=== PATIENT | male | born 1960 | race Caucasian/White ===

== ENCOUNTER → 2024-10-14 08:37 | Outpatient (BNVA) | payer OTHER, SELFPAY | PROVIDERS: Visit Provider Nurse Practitioner Family | DX: D48.5 Neoplasm of uncertain behavior of skin (principal); L73.8 Other specified follicular disorders; L82.1 Other seborrheic keratosis; L57.8 Other skin changes due to chronic exposure to nonionizing radiation; X32.XXXA Exposure to sunlight, initial encounter; L57.0 Actinic keratosis; L81.4 Other melanin hyperpigmentation; L82.0 Inflamed seborrheic keratosis; L53.8 Other specified erythematous conditions; R20.8 Other disturbances of skin sensation | CPT/HCPCS: 11102; 17000; 17110; 99203 ==

== ENCOUNTER → 2024-10-29 10:44 | Outpatient (BNVA) | payer OTHER, SELFPAY | PROVIDERS: Visit Provider Nurse Practitioner | DX: M19.011 Primary osteoarthritis, right shoulder (principal); M19.012 Primary osteoarthritis, left shoulder; M67.912 Unspecified disorder of synovium and tendon, left shoulder; M67.911 Unspecified disorder of synovium and tendon, right shoulder; Z98.890 Other specified postprocedural states | CPT/HCPCS: 73030; 99204 ==

== ENCOUNTER → 2024-11-10 11:46 | Outpatient (BNVA) | payer OTHER, SELFPAY | PROVIDERS: Visit Provider Dermatology | DX: L82.1 Other seborrheic keratosis (principal); L73.8 Other specified follicular disorders; C44.42 Squamous cell carcinoma of skin of scalp and neck; L82.0 Inflamed seborrheic keratosis; L29.89 Other pruritus; L53.8 Other specified erythematous conditions | CPT/HCPCS: 17110; 17272; 99213 ==

== ENCOUNTER → 2024-11-22 10:23 | Outpatient (BNVA) | payer OTHER, SELFPAY | PROVIDERS: Visit Provider Nurse Practitioner Family | DX: L30.9 Dermatitis, unspecified (principal); L82.1 Other seborrheic keratosis; L57.8 Other skin changes due to chronic exposure to nonionizing radiation; X32.XXXA Exposure to sunlight, initial encounter; L57.0 Actinic keratosis; L81.4 Other melanin hyperpigmentation; L73.8 Other specified follicular disorders; Z08 Encounter for follow-up examination after completed treatment for malignant neoplasm; Z85.828 Personal history of other malignant neoplasm of skin | CPT/HCPCS: 99213 ==

== ENCOUNTER 2024-11-26 07:38 | Outpatient (CLI) | payer OTHER, SELFPAY ==
--- NOTE | 2024-11-26 07:41 | MR_ITS ---
WS: [id number] MRI LEFT SHOULDER ARTHROGRAM HISTORY: left shoulder pain. Prior surgery COMPARISON: Radiograph 10/29/2024. TECHNIQUE: Pre and postcontrast imaging. Gadolinium mixture was injected under fluoroscopy. Coronal T1 fat sat, sagittal T2 fat sat, coronal T2 fat sat, axial proton density, axial T1 nonfat saturation views are submitted. Prearthrogram: Marked AC joint arthropathy. There is fluid in the AC joint with hypertrophic bone formation. Prior resection of the distal clavicle. Mild osteophyte encroachment upon the myotendinous portion of the supraspinatus. There is fluid extending through the AC joint. There is a small collection of fluid superior to the AC joint. Small amount of fluid in the subacromial and subdeltoid bursa. Biceps tendon is not identified in the bicipital groove. No os acromion. Mild narrowing of the glenohumeral joint. Slightly high riding humeral head. Osteophytic ridging around the humeral head. No fractures. No significant rotator cuff muscle atrophy or edema. There is an anchor within the humeral head from prior rotator cuff tendon repair. There is a small amount of fluid at the insertion site of the anterior most supraspinatus tendon. Small caliber posterior labrum. Degenerative changes in the labrum but no tear. Post arthrogram: A large amount of the intra-articular contrast extends external from the joint which is probably from the torn distal supraspinatus tendon tear closely associated with the rotator cuff interval. Fluid extends through the tear into the AC joint. Fluid collections superior to the AC joint. MR/MR shoulder LT wo/w con [id number] IMPRESSION: 1. Severe AC joint arthritis with encroachment upon the myotendinous portion o f the supraspinatus. 2. Absent biceps tendon from the bicipital groove. 3. Degenerative changes in the AC joint with fluid extending through the AC rufus int. 4. On the postcontrast arthrogram there is a large fluid collection filling wi th injected contrast superior to the AC joint. 5. Large amount of injected intra-articular contrast extends into the subacrom ial and subdeltoid bursa. Rotator cuff tear in the anterior supraspinatus tendo n near the biceps labral anchor. 6. Limited evaluation of the labrum. No tear identified.
--- NOTE | 2024-11-26 08:00 | IR_ITS ---
WS: [id number] LEFT SHOULDER ARTHROGRAM UNDER FLUOROSCOPY. PRIOR TO MRI EVALUATION. HISTORY: left shoulder pain. prior surgery COMPARISON: None available. FLUOROSCOPY TIME: 1min [id number] # of spot films: 2 Procedure, risks and complications were explained to the patient. Consent has been obtained. Under fluoroscopic guidance the skin is marked over the medial superior third of the humeral head, cleansed with ChloraPrep and anesthetized with lidocaine. 22- gauge spinal needle is inserted to the cortex of the humeral head. Test injection with Omnipaque reveals the needle is appropriately positioned in the joint. A mixture of 10 cc sterile saline, 5 cc Omnipaque and 0.1 mmol gadolinium are injected under fluoroscopic guidance. Patient tolerated the joint distention well. No complications. Injected contrast extends external from the joint and is noted to fill the subacromial and subdeltoid bursa and extending to the AC joint. IR/IR arthrogram shoulderLT [id number] IMPRESSION: Uncomplicated LEFT shoulder joint injection prior to MRI.
[2024-11-26] MEDS: gadobenate dimeglumine 20 mL vial 3 ML IV (16:16)
[2024-11-26] MEDS: iohexol 240 mg/mL 50 mL Btl 25 ML INTRA-ARTI (16:18)
== END 2024-11-26 07:39 | disposition home or self-care (01) ==
LOC: RAD 07:39
PROVIDERS: PCP Family Medicine Geriatric Medicine; Visit Provider Nurse Practitioner
DX: M19.011 Primary osteoarthritis, right shoulder (principal); M19.012 Primary osteoarthritis, left shoulder; Z98.890 Other specified postprocedural states; M67.912 Unspecified disorder of synovium and tendon, left shoulder; S46.112A Strain of muscle, fascia and tendon of long head of biceps, left arm, initial encounter; S46.012A Strain of muscle(s) and tendon(s) of the rotator cuff of left shoulder, initial encounter; X58.XXXA Exposure to other specified factors, initial encounter; M75.52 Bursitis of left shoulder
CPT/HCPCS: 23350; 73223; 77002; J9999

== ENCOUNTER → 2024-12-06 12:19 | Outpatient (BNVA) | payer OTHER, SELFPAY | PROVIDERS: PCP Family Medicine Geriatric Medicine; Visit Provider Nurse Practitioner | DX: Z01.810 Encounter for preprocedural cardiovascular examination (principal); I25.10 Atherosclerotic heart disease of native coronary artery without angina pectoris; I48.0 Paroxysmal atrial fibrillation; I49.3 Ventricular premature depolarization; I50.22 Chronic systolic (congestive) heart failure | CPT/HCPCS: 99204 ==

== ENCOUNTER → 2024-12-08 14:11 | Outpatient (BNVA) | payer OTHER, SELFPAY | PROVIDERS: PCP Family Medicine Geriatric Medicine; Visit Provider Internal Medicine Cardiovascular Disease | DX: I25.10 Atherosclerotic heart disease of native coronary artery without angina pectoris (principal); I48.0 Paroxysmal atrial fibrillation; Z79.01 Long term (current) use of anticoagulants; I11.0 Hypertensive heart disease with heart failure; I50.22 Chronic systolic (congestive) heart failure; I49.3 Ventricular premature depolarization; Z01.810 Encounter for preprocedural cardiovascular examination; R07.9 Chest pain, unspecified; R06.02 Shortness of breath | CPT/HCPCS: 93005; 99204 ==

== ENCOUNTER 2024-12-16 08:13 | Outpatient (CLI) | payer OTHER, SELFPAY ==
--- NOTE | 2024-12-16 | ECG_ITS ---
[facility] Test Date: 2024-12-16 Pat Name: Yony Muse Department: Room: Gender: Male Emt/Dispatcher: : 1960 Requested By: Juanito Ray Order Number: [id number] Chava MD: Zhang Kelly M.D. Interpretive Statements Lung unchanged pre/post procedure; Intraprocedure shortess of breath; Symptoms resoled by discharge PROCEDURE: At the baseline, the EKG revealed normal sinus rhythm with frequent PVCs. The baseline heart was 60 bpm with a blood pressue of 133/95 mm of Hg Lexiscan was infused over a period of 20 seconds. A total of 0.4 milligrams of Lexiscan was infused. The stress phase was continued for a total of 3 minutes and 15 seconds . Heart rate at the end of the stress phase was 85 bpm with a blood pressure 159/78 mm of Hg. The EKG at the peak infusion revealed no significant changes. Sestamibi was injected 20 seconds after the Lexiscan infusion. No recovery phase EKG or vital signs available to dictate CONCLUSION: 1. No significant EKG changes with the LexiScan infusion 2. No LexiScan induced chest pain or cardiac arrhythmia 3. Normal blood pressure and heart rate response 4. Sestamibi/sestamibi perfusion scan pending; see separate report. Electronically Signed On 12-19-2024 20:51:28 CDT by Zhang Kelly M.D. [email or web address]
[2024-12-16 08:58] VITALS: BMI 43.4
--- NOTE | 2024-12-16 09:00 | NMCV_ITS ---
NM keven perf SPECT r/s* [id number] Yony Muse Age: 64 Gender: M : 1960 Exam Date: 12/16/2024 09:38 Ordering Phys: Juanito Ray MD ([email or web address]) Technologist: HAYLEY Sanford Exam [facility]: [facility] Indications: cp STRESS TEST Please see separate stress test report in [facility] for full findings IMAGE PROTOCOL Rest/Stress 1 Lexiscan Day Radiopharmaceutical Dose (mCi) Administration Site Administered by Rest: Tc-99m 11 IV HAYLEY Sanford Sestamibi Stress:Tc-99m 33 IV HAYLEY He Sestamibi Rest: 16-Dec-2024 60 Discovery 630 Stress: 16-Dec-2024 30 Discovery 630 0.4mg Lexiscan. Supine position only as patient was unable to lay prone. SPECT RESULTS Technical Quality: Good Raw Data Analysis: Soft tissue attenuation Image Corrections: No attenuation or motion correction applied Summed Stress Score: 1 Summed Rest Score: 2 Summed Difference Score: 1 PERFUSION FINDINGS Small area of slightly decreased tracer uptake was noted in the mid inferior wall segment. Some reversibility was noted in this area FUNCTIONAL RESULTS (calculated via Gated SPECT) Stress Image LV EF (%): 53 Stress EDV (mL):174 TID: 1.17 Stress ESV (mL):82 FUNCTIONAL FINDINGS: Segmental wall motion analysis revealed mild hypokinesis of the apical anterior region. The transient ischemic dilatation ratio was slightly elevated-1.17 IMPRESSIONS 1. Myocardial perfusion imaging revealing a small area of slight reversibility in the mid inferior wall region suggesting ischemia in the distribution of the right coronary artery. Elevated transient ischemic dilatation ratio (1.17)also may suggest ischemia. 2. Normal LV ejection fraction 53%. 3. LV wall motion analysis revealing mild hypokinesia of the anteroapical region. 4. Mildly dilated LV cavity with an end-systolic volume of 82 mL No similar previous studies are available for comparison Dr Zhang Kelly MD [facility] (Electronically Signed) Final Date: 16 December 2024 16:48 S
[2024-12-16 10:34] VITALS: BP 159/78; PULSE 85
--- NOTE | 2024-12-16 10:35 | PC.NURSE ---
computer did a hard reboot, not a final recovery time noted.
== END 2024-12-16 08:14 | disposition home or self-care (01) ==
PROVIDERS: PCP Family Medicine Geriatric Medicine; Visit Provider Internal Medicine Cardiovascular Disease
DX: R07.9 Chest pain, unspecified (principal); R94.39 Abnormal result of other cardiovascular function study; I51.89 Other ill-defined heart diseases; I51.7 Cardiomegaly; I49.8 Other specified cardiac arrhythmias; I49.3 Ventricular premature depolarization
CPT/HCPCS: 36415; 78452; 93017; 96374; A9500; J2785

== ENCOUNTER 2024-12-16 14:43 | Emergency (ER) | payer OTHER, SELFPAY ==
[2024-12-16 14:47] VITALS: BP 153/68; PULSE 62; RESP 18; TEMP 36.6; O2SAT 96; BMI 43.6
--- NOTE | 2024-12-16 14:49 | ECG_ITS ---
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 Measurements Intervals [place] Rate: 83 P: 84 MA: 221 QRS: 21 QRSD: 106 T: 48 QT: 356 QTc: 419 Interpretive Statements SINUS RHYTHM WITH FIRST DEGREE AV BLOCK WITH FREQUENT VENTRICULAR PREMATURE COMPLEXES Compared to ECG 12/08/2024 14:39:03 No significant changes Electronically Signed On 12-16-2024 17:11:37 CDT by Zhang Kelly M.D. [email or web address] [id number]
--- OUTSIDE RECORDS SUMMARY | 2024-12-16 14:49 | XMS_ITS | Clinical Summary ---
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 Gender Identity Not on file Sexual Orientation Not on file Plan of Treatment Health Maintenance Due Date Last Done Comments Colonoscopy Every 6 Months 1960 Colorectal Cancer Screening Annual FOBT/FIT Test 11/08 Colorectal Cancer Screening Cologuard 1960 Colorectal Cancer Screening Flex Sigmoidoscopy 959 Annual Depression Screening 1969 Hepatitis C Antibody Screen 1976 Colorectal CA Screen 10 Year Colonoscopy 11/09/2003 Colorectal Cancer Screening 11/09/2003 Pneumococcal Vaccine Age 50+ (1 of 1 - PCV) 2008 Flu Vaccine (#1) 11/15/2024 Influenza Vaccine 11/15/2024 RSV Immunization Pa tients or 60+ Years (1 - 1-dose 75+ series) 2033 Insurance [facility] [employer] VACCN
--- OUTSIDE RECORDS SUMMARY | 2024-12-16 14:49 | XMS_ITS | Data Portability ---
Author Organization [place] [facility] ical [facility], [facility]di[facility]. 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 Lab None recorded. Referral None recorded. Procedures None recorded. Surgeries None recorded. Imaging None recorded. Medication Orders losartan 50 mg-hydrochl orothiazide 12.5 mg tablet 2024 025 [facility], [facility] [address], [place], [place], [id number], 13:01:38 metoprolol succinate ER 50 mg tablet,exte nded release 24 hr 2024 025 [facility], [address], [place], [id number], 17:02:45 Patient Targets Encounter Date Encounter Id Patient Goals Patient Target Last Modified By Organization Details Last Modified Time 04/07/2024 [id number] Samples and 30 day free card of eliquis on this visit. Fu in 1 month with [email or web address] Not available 04/07/2024 16:28:36 Patient Instructions Encounter Date Encounter Id Patient Instructions Last Modified By Organization Details Last Modified Time 04/07/2024 [id number] Medication dates , problem lists and dates, prior history items, etc may be in error because of this EMR function Return if problems worsen or develop Not available 04/07/2024 16:28:48 05/14/2024 [id number] Return if problems worsen or develop Not available 05/14/2024 16:59:06 07/09/2024 [id number] Return if problems worsen or develop Not available 07/09/2024 12:53:49 Reason for Referral None Reported. Results Created Date Observation Date Name Description Value Unit Range Abnormal Flag Note LastModifiedBy Organization Detail LastModifiedTime 04/06/1904/05/2024 event monit or No observ ation record ed. [email or web address] [facility] [address], [address], 04/06/2024 17:22:06 04/06/19 25 03/19/2024 left heart alon teriz ation (SURG ) No observ ation record ed. [address], [address], 04/06/2024 16:43:24 04/06/19 25 03/18/2024 , echo ardio gram No observ ation record ed. [address], [address], 04/06/2024 16:44:01 04/06/19 25 03/18/2024 elect lore diogr am No observ ation record ed. [address], [address], 04/06/2024 16:44:50 04/06/19 25 03/17/2024 XR, chest No observ ation record ed. [address], [address], 04/06/2024 16:45:23 04/06/19 25 03/18/2024 MRI, brain + brain stem, w/o contr ast No observ ation record ed. [address], [address], 04/06/2024 16:46:02 04/06/19 25 03/17/2024 CT, angio gram, neck, w/wo contr ast No observ ation record ed. [address], [address], 04/06/2024 16:48:47 04/25/19 event monit or No observ ation record ed. [email or web address] [facility] [address], [address], 05/17/2024 10:13:45 Result Notes None recorded. Problems Name Problem SNOMED Code Status Onset Date Resolution Date Notes Provider Name and Address Organization Details Recorded Time Heart failure 32318974 Active 2024 Monica taylor, [facility] 09:39:51 Syncope 518179275 Active 2024 [facility] 09:[facility]58 Fatigue 22637841 Active 2024 Monica Duggan [facility] 09:40:04 Coronary arterioscleros is 88119120 Active 2024 Kiana Becerril null, [facility] 5 16:06:04 Systolic heart failure 346542318 Active 2024 Kiana Becerril null, [facility] 5 16:06:29 Paroxysmal atrial fibrillation 177367705 Active 2024 Kiana Becerril [facility], [facility] 16:07:38 Problem Notes None recorded. Procedures Surgical History Date Name Laterality Status Provider Name and Address Organization Details Recorded Time surgical procedure on lower extremity completed Monica Duggan [facility] 04/07/2024 15:59:27 operative procedure on knee completed [facility] 04/07/2024 15:59:46 Elbow Surgery completed [facility] 04/07/2024 16:00:19 excision of mass completed [facility] 04/07/2024 16:00:57 Imaging Results None recorded. Procedure Notes None recorded. Medical Equipment None Reported. Allergies No known drug allergies Medications Name Sig Start Date Stop Date Status Note LastModified by Organization Details LastModified Time atorvastatin 80 mg tablet Take 0.5 tablets every day by oral route in the evening. active Not Available Not Available No t Available acetaminophe n 325 mg tablet Take 2 tablets every 4 hours by oral route as needed. active Not Available Not Available N ot Available tizanidine 4 mg tablet Take 1 tablet every day by oral route at bedtime. active Not Available Not Available No t Available metoprolol succinate ER 50 mg tablet,exten ded release 24 hr Take 1 tablet every day by oral route. 2024 active Not Available Not Available Not Avai lable meloxicam 15 mg tablet Take 1 tablet every day by oral route. active Not Available Not Available No t Available sertraline 100 mg tablet Take 1 tablet every day by oral route. active Not Available Not Available No t Available sildenafil 100 mg tablet Take 0.5 tablets every day by oral route as needed. active Not Available Not Available No t Available famotidine 20 mg tablet Take 1 tablet every day by oral route at bedtime. active Not Available Not Available No t Available meclizine 25 mg tablet Take 1 tablet twice a day by oral route as needed. active Not Available Not Available No t Available hydroxyzine HCl 25 mg tablet Take 1 tablet 3 times a day by oral route as needed. active Not Available Not Available No t Available losartan 50 mg-hydrochlo rothiazide 12.5 mg tablet Take 1 tablet every day by oral route. 2024 active Not Available Not Available Not Avai lable pregabalin 75 mg capsule Take 1 capsule twice a day by oral route. active Not Available Not Available No t Available Eliquis 5 mg tablet Take 1 tablet twice a day by oral route. 2024 active Not Available Not Available Not Avai lable olodaterol 2.5 mcg/actuatio n mist for inhalation Inhale 2 puffs every day by inhalation route. active Not Available Not Available No t Available albuterol sulfate 90 mcg/actuatio n breath activated powder inhaler Inhale 2 puffs 4 times a day by inhalation route as needed. active Not Available Not Available No t Available Vitals Date Recorded Respiratory rate Body weight Body mass index (BMI) Body height Heart rate Oxygen saturation Oxygen saturation in Arterial blood by Pulse oximetry Systolic And Diastolic Provider Name and Address Organization Details Last Updated DateTime 5 16 /min 531681. 56 g 41.1 kg/m2 187.96 cm 78 /min 96 % 96 % 145/67 mm[Hg] Anali Guerrero [facility] 15:48:53 Date Recorded Respiratory rate Provider Name a nd Address Organization Details Last Updated DateTime 05/14/2024 18 /min Kiana Becerril [facility] 05/14/2024 16:02:05 Date Recorded Body height Heart rate Body mass index (BMI) Body weight Oxygen saturation Oxygen saturation in Arterial blood by Pulse oximetry Systolic And Diastolic Provider Name and Address Organization Details Last Updated DateTime 187.96 cm 80 /min 41.1 kg/m2 094503. 56 g 95 % 95 % 154/73 mm[Hg] Evelyne Fernandes [facility] 15:35:59 Date Recorded Body height Heart rate Respiratory rate Body mass index (BMI) Body weight Oxygen saturation Oxygen saturation in Arterial blood by Pulse oximetry Systolic And Diastolic Provider Name and Address Organization Details Last Updated DateTime 187.96 cm 55 /min 20 /min 41.1 kg/m2 343994. 56 g 97 % 97 % 148/76 mm[Hg] Evelyne Fernandes [facility] 11:54:45 Social History Question Answer Notes LastModified by Organizat ion Details LastModified Time Tobacco Smoking Status [facility] 15:57:47 What Is Your Level Of Caffeine Consumption? Moderate [email or web address] Information not available 04/07/2024 What Was The Date Of Your Most Recent Tobacco Screening? 05/14/2024 Information not available 05/14/2024 Sex: Unknown Functional Status Question Answer Note LastModified by Organizat ion Details LastModified Time Do you use any illicit or recreational drugs? No [email or web address] Information not available 04/07/2024 Do you or have you ever used any other forms of tobacco or nicotine? No [email or web address] Information not available 04/07/2024 What is your level of alcohol consumption? Occasional [email or web address] Information not available 04/07/2024 Mental Status None recorded. Family History Relationship Description Onset Age of this Age Resolved Age Notes LastModified by Organization Details LastModified Time Father Myocardial infarction [email or web address] Not available 04/07 15:57:02 Medical History Condition Response Anxiety Disorder Y Anticoagulation therapy N Atrial Fibrillation Y Arthritis Y Head Injury/Concussion Y Myocardial Infarction Y Acid Reflux (GERD) Y Back Problems Y Migraines Y Stroke Y Lung Disease Y Asthma Y Depression Y COPD Y Anemia N Vertigo Y Anesthesia Complications N Aneurysm N Headaches Y Deep Vein Thrombosis Y Past Encounters Encounter ID Performer Location Encounter Start Date Encounter Closed Date Diagnosis/Indication Diagnosis SNOMED-CT Code Diagnosis ICD10 Code Diagnosis IMO Codes Diagnosis Note [id number] Rohan Williamson Jr., LOCK TENDER [facility]. [address] [place] [address] 04/07/2024 15:40:01 04/07/2024 16:37:57 Coronary arteriosclerosis 87755710 I25.10 No flow limitation per cath 03/2024 greater than 40%; EF 35%, mild diastolic HF. Paroxysmal atrial fibrillation 859659322 I48.0 per event monitor. Systolic h eart failure 757518756 I50.21 NYHA class EF 35% per cath 03/2024. Syncope 190973397 R55 on 03/17/2024 following dizziness episodes and blacking out ; metoprolol DCD on this hospitaliz ation due to bradycardi a. Transient cerebral ischemia 751546856 G45.9 sp COVID vaccine- clot removed from right arm in [facility]. [id number] Polo Brunson MD [facility]. [address] [place] [address] 05/14/2024 15:29:23 05/14/2024 17:00:54 Coronary arteriosclerosis 83185268 I25.10 Paroxysmal atrial fibrillation 785387585 I48.0 Systolic h eart failure 902189766 I50.20 [id number] Polo Brunson MD [facility]. [address] [place] [address] 07/09/2024 11:49:21 07/09/2024 15:50:38 Coronary arteriosclerosis 64821796 I25.10 Fatigue 62139389 R53.83 Heart failure 63829173 I 50.9 Paroxysmal atrial fibrillation 970544623 I48.0 Health Concerns Section Related Observation LastModified by Organization Detai ls LastModified Time None Recorded Concern Status LastModified by Organization Details LastModified Time None Recorded Advance Directives Directive None Recorded Payers Insurance Date Sequence Insurance Name Policy Number Policy Cameron Covered Member ID Cameron Member ID Guarantor Name 04/07/2024 1 [place] Yony Muse [id number] 2 Yony Muse 10/06/2024 [employer] [facility] [id number] Yony Muse [id number] Yony Muse Notes Date Note Type Note Provider Name and Address Organization Details Recorded Time 04/07/2024 text/html Mr Muse presents for hospital follow up dizziness and AFIB. [facility] ER 03/17/24--dizziness; DC 03/20/24--WMA on TTE Event Monitor 04/05/24-- results in chart with AF--Started Eliquis 5mg PO BID. Patient reports chest tightness, dyspnea, increased fatigue. No syncope or dizziness since being in hospital. He denies having any cardiac issues such as chest pain, palpitations, edema, and dizziness. Medications reviewed and updated in clinic today. He is active with no complaints. Nursing note: [id number]-dw-[id number] patient education given, Scheduling/coordin ating any ancillary services ordered on this visit I have personally reviewed prior external chart notes, nurse ros, and reviewed pertinent testing including imaging below. Chest X Ray 03/17/24:Mild cardiomegaly, no pulmonary process. CTA Neck 03/17/24:Unremarkabl e carotid and vertebral territories bilaterally. Echo 03/18/24:1. Mildly decreased global left ventricular systolic function.2. There is moderate to severe hypokinesis of the inferior wall.3. Mildly reduced LV systolic function with an EF of 40-45%. (Imaging quality is suboptimal).4. Wall motion abnormality in the RCA territory. MRI Brain W/O Contrast 03/18/24:1. No acute infarct, intracranial hemorrhage or mass effect/midline shift.2. No significant FLAIR signal abnormality is seen in the brain parenchyma. LHC 03/19/24:1: Coronary artery disease with no flow critical lesions identified.2: Mild diastolic dysfunction of the left ventricle with moderate systolic dysfunction.PLAN:M edical therapy aimed at patients decreased systolic function. Rohan Williamson Jr., LOCK TENDER [address] [place], [address], [facility] 04/07/2024 16:29:07 05/14/2024 text/html This 63 year old male presents for a 1 month follow up for syncope, CAD, PAFIB, and systolic heart failure. He was started on eliquis at his last visit. He reports some chest tightness and dyspnea with exertion. He reports palpitations but denies edema. He tries to stay active but has to rest frequently due to the above issues and fatigue. I have personally reviewed prior external chart notes, nurse ROS, and reviewed pertinent testing including 04/2024 event monitor, 03/2024 LHC, 03/2024 EKG, 03/2024 echo, and 03/2024 CTA neck. Nursing note: wsop-os-tunr patient education given, Scheduling/coordin ating any ancillary services ordered on this visit Polo Brunson MD [address] [place], [address], [facility] 05/14/2024 16:59:36 07/09/2024 text/html This 63 year old male presents for a 2 month follow up for CAD, PAFIB, and systolic heart failure. Metoprolol was added at his last visit. He is upset that he was put on metoprolol because it does not work and makes him feel tired. He states that the hospital put him on some medication for his AFIB that did not make him feel bad. He does not know what the medication was and did not bring a medication list today. He reports chest tightness and dyspnea with exertion. He complains of fatigue with minimal exertion. He is not able to be very active due to the above and left shoulder problems. I have personally reviewed prior external chart notes, nurse ROS, and reviewed pertinent testing including 04/2024 event monitor, 03/2024 LHC, 03/2024 EKG, 03/2024 echo, and 03/2024 CTA neck. Nursing note: [id number]-rp-cylo patient education given, Scheduling/coordin ating any ancillary services ordered on this visit Polo Brunson MD [address] [place] [address], [address], [facility] 07/09/2024 12:54:08
--- NOTE | 2024-12-16 15:15 | XRR_ITS ---
PROCEDURE INFORMATION: Exam: XR Chest Exam date and time: 12/16/2024 3:34 PM Age: 64 years old Clinical indication: Pain; Angina pectoris; Additional info: Chest pain TECHNIQUE: Imaging protocol: Radiologic exam of the chest. Views: 1 view. COMPARISON: shoulder LT wo/w con [id number] 11/26/2024 8:06 AM FINDINGS: Lungs: Unremarkable. No consolidation. Pleural spaces: Unremarkable. No pleural effusion. No pneumothorax. Heart/Mediastinum: Heart size is enlarged. Bones/joints: There are moderate degenerative changes of the bony structures. There has been resection of the distal right clavicle. Multiple old rib fractures are present on the left. No acute bony abnormality seen. XR/XR chest 1V portable [id number] IMPRESSION: Cardiomegaly.
--- NOTE | 2024-12-16 15:15 | W.ED.CHESTPA ---
HPI - Chest Pain General: Chief Complaint: Chest Pain Stated Complaint: CP SOB Time Seen by Provider: 12/16/24 15:12 History of Present Illness: 64-year-old man with a history of coronary artery disease status post recent heart attack and stents, atrial fibrillation with chronic anticoagulation on Eliquis, chronic systolic congestive heart failure, and obesity who presents the emergency room with concern for worsening swelling and shortness of breath. He was sent by the [place] clinic. He was post to be placed on some Lasix but it fell through the cracks he says. He was sent by the clinic to get some IV Lasix and then they would work on getting him started at home. No chest pain. Related Data Home Medications ?Medication ?Instructions ?Recorded ?Confirmed apixaban 2.5 mg tablet (Eliquis) 2.5 mg PO BID 10/29/24 12/08/24 meloxicam 15 mg tablet 15 mg PO DAILY 10/29/24 12/08/24 omeprazole 40 mg capsule,delayed 40 mg PO DAILY 10/29/24 12/08/24 release B-complex with vitamin C 1 cap PO DAILY 11/05/24 12/08/24 L-desoxyephedrine 50 mg nasal mg intranasal 11/05/24 12/08/24 inhaler acetaminophen 325 mg capsule 325 mg PO QID PRN 11/05/24 12/08/24 albuterol sulfate 90 mcg/actuation 1 inh inhalation QID 11/05/24 12/08/24 aerosol inhaler (Ventolin HFA) atorvastatin 80 mg tablet (Lipitor) 80 mg PO DAILY 11/05/24 12/06/24 azithromycin 250 mg tablet 250 mg PO DAILY 11/05/24 12/08/24 buspirone 10 mg tablet 10 mg PO BID 11/05/24 12/08/24 hydroxyzine HCl 25 mg tablet 25 mg PO BID PRN 11/05/24 12/08/24 lorazepam 0.5 mg tablet 0.5 mg PO DAILY PRN 11/05/24 12/08/24 losartan 50 mg-hydrochlorothiazide tab PO 11/05/24 12/08/24 12.5 mg tablet mirtazapine 30 mg tablet 30 mg PO DAILY 11/05/24 12/08/24 prednisone 10 mg tablet mg PO 11/05/24 12/08/24 pregabalin 75 mg capsule 75 mg PO DAILY 11/05/24 12/08/24 sildenafil 100 mg tablet (Viagra) 100 mg PO DAILY PRN 11/05/24 12/08/24 tiotropium 2.5 mcg-olodaterol 2.5 2 puff inhalation DAILY 11/05/24 12/08/24 mcg/actuation mist for inhalation tizanidine 4 mg capsule 4 mg PO BID PRN 11/05/24 12/08/24 trazodone 50 mg tablet 50 mg PO DAILY 11/05/24 12/08/24 Previous Rx's ?Medication ?Instructions ?Recorded furosemide 40 mg tablet (Lasix) 40 mg PO QAM 5 days #5 tabs 12/16/24 potassium chloride 20 mEq 40 meq (2 x 20 mEq) PO DAILY 5 12/16/24 tablet,extended release(part/cryst) days #10 tabs Allergies Allergy/AdvReac Type Severity Reaction Status Date / Time No Known Allergies Allergy Verified 12/08/24 14:16 Review of Systems Narrative: Constitutional symptoms: Negative except as documented in HPI. Skin symptoms: Negative except as documented in HPI. Eye symptoms: Negative except as documented in HPI. ENMT symptoms: Negative except as documented in HPI. Respiratory symptoms: Negative except as documented in HPI. Cardiovascular symptoms: Negative except as documented in HPI. Gastrointestinal symptoms: Negative except as documented in HPI. Genitourinary symptoms: Negative except as documented in HPI. Musculoskeletal symptoms: Negative except as documented in HPI. Neurologic symptoms: Negative except as documented in HPI. Psychiatric symptoms: Negative except as documented in HPI. Endocrine symptoms: Negative except as documented in HPI. PFS ED PFSH: Medical History (Updated 12/16/24 @ 16:26 by Lily Pitts MD) Primary osteoarthritis of shoulders, bilateral Social History Smoking and tobacco/nicotine status: never used tobacco/nicotine Physical Exam Narrative: EXAM NARRATIVE: General: Alert, no acute distress. Skin: Warm, dry. Head: Normocephalic, atraumatic. Neck: Supple, trachea midline. Eye: Extraocular movements are intact. Ears, nose, mouth and throat: mucosa moist. Cardiovascular: Regular, Normal peripheral perfusion. Tibial edema Respiratory: Lungs are clear to auscultation, respirations are non-labored, breath sounds are equal, Symmetrical chest wall expansion. Gastrointestinal: Soft, Nontender, Non distended Musculoskeletal: Normal ROM, no deformity. Neurological: Alert and oriented, No focal neurological deficit observed. Psychiatric: Cooperative, appropriate mood & affect. Course Vital Signs: Vital signs: Vital Signs Temperature 97.8 F 12/16/24 14:47 Pulse Rate 69 12/16/24 17:00 Respiratory Rate 18 12/16/24 14:47 Blood Pressure 148/57 12/16/24 17:00 Pulse Oximetry 93 12/16/24 17:00 Oxygen Delivery Me thod Room Air 12/16/24 17:00 MDM - Chest Pain Medical Decision Making Differential diagnosis for patient with chest pain includes but is not limited to and based on the above HPI, review of systems and physical exam: Pneumonia. unstable angina. angina. Acute coronary syndrome / MA. Pulmonary embolism. Costochondritis / musculoskeletal. Pleurisy. Pericarditis. Esophageal spasm. Pancreatis. Cholecystitis. Orders placed to evaluate differential diagnosis based on the above differential, HPI and physical exam EKG: Time 1449. Rate 83. Normal sinus rhythm, No ST-T changes, PVCs, first degree AV Block, EP Interpretation. This was reviewed and interpreted by myself the ER physician at 1455 Chest x-ray: Cardiomegaly but no acute process. No infiltrate. No pneumothorax. This was reviewed and interpreted by myself the emergency room physician. I also reviewed the radiology report. Lab Review: Laboratory results were reviewed and interpreted by myself the emergency room physician. No leukocytosis. No anemia. No renal failure. proBNP is not elevated. Creatinine is very mildly elevated initially at 21. I reviewed the patient's medical record. 64-year-old man with a history of coronary artery disease status post recent heart attack and stents, atrial fibrillation with chronic anticoagulation on Eliquis, chronic systolic congestive heart failure, and obesity Reexamination: Patient remained stable. No increased work of breathing. No altered mental status. No focal motor deficits. Assessment and plan: Edema ? IV - Discharged home - Discussed plan with patient. Answered any questions. - Evaluation and treatment of this problem were appropriate in the emergency setting. Lab Data 12/16/24 15:28 12/16/24 15:28 Radiology Impressions Chest X-Ray 12/16/24 15:15 IMPRESSION: Cardiomegaly. Laboratory Results WBC 9.53 10^3/uL (3.29-11.43) 12/16/24 15: RBC 4.77 10^6/uL (3.85-5.65) 12/16/24 15: Hgb 13.90 g/dL (11.27-16.99) 12/16/24 15: Hct 42.8 % (37-53) 12/16/24: MCV 89.7 fl (82-101) 12/16/24: MCH 29.1 pg (27-33) 12/16/24 15: MCHC 32.5 g/dL (30-55) 12/16/24: RDW 12.8 % (12.1-15.1) 12/16/24: Plt Count 266 10^3/cmm (157-399) 12/16/24: MPV 9.7 fL (7.4-10.4) 12/16/24: Neut % (Auto) 63.6 % 12/16/24: Lymph % (Auto) 22.4 % 12/16/24: Brooke % (Auto) 8.4 % 12/16/24: Eos % (Auto) 4.6 % 12/16/24: Baso % (Auto) 0.6 % 12/16/24: Neut # (Auto) 6.06 10^3/uL (1.8-7.7) 12/16/24: Lymph # (Auto) 2.1 10^3/uL (0.8-4.8) 12/16/24: Brooke # (Auto) 0.8 10^3/uL (0.2-0.9) 12/16/24: Eos # (Auto) 0.4 10^3/uL (0.0-0.8) 12/16/24: Baso # (Auto) 0.1 10^3/uL (0.0-0.1) 12/16/24: Nucleated RBC % (auto) 0 % 12/16/24: Nucleated RBCs # 0.0 /100WBC 12/16/24: Sodium 139 mmol/L (136-145) 10/02/25 15:28 Potassium 4.3 mmol/L (3.5-5.1) 12/16/24 15:28 Chloride 98 mmol/L (98-107) 12/16/24 15: Carbon Dioxide 28 mmol/L (22-29) 12/16/24 15:28 Anion Gap 17.3 (5-19) 12/16/24 15: BUN 17 mg/dL (8-23) 12/16/24 15: Creatinine 1.1 mg/dL (0.7-1.2) 12/16/24 15:28 GFR Calculation 67.0 mL/min (90-130) L 12/16/24 15: Glucose 104 mg/dL (65-115) 12/16/24 15: Calculated Osmolality 290 mOsm/kg (285-295) 12/16/24 15: Calcium 9.0 mg/dL (8.5-10.5) 12/16/24 15: Total Bilirubin 0.3 mg/dL (0.15-1.2) 12/16/24 15:28 AST 19 U/L (0-40) 12/16/24 15:28 ALT 17 U/L (0-41) 12/16/24 15:28 Alkaline Phosphatase 77 U/L (40-130) 12/16/24 15:28 Troponin T Baseline 22 ng/L (0-15) H 12/16/24 15:28 Troponin T 120 Minute 19.51 ng/L (0-15) H 12/16/24 16:37 Delta Troponin T -2.49 ABS# (0-10) L 12/16/24 16:37 NT-Pro-B Natriuret Pep 94 pg/mL (0-125) 12/16/24 15:28 Total Protein 6.8 g/dL (6.6-8.7) 12/16/24 15: Albumin 4.5 g/dL (3.5-5.2) 12/16/24 15: Globulin 2.3 g/dL (1.3-4.6) 12/16/24 15:28 All radiology interpretation(s) finalized by discharge Discharge Plan Discharge Patient Disposition: Home Clinical Impression: Edema, CAD (coronary artery disease) Condition: Stable Prescriptions: New furosemide [Lasix] 40 mg tablet 40 mg PO QAM 5 Days Qty: 5 0RF potassium chloride 20 mEq tablet,ER particles/crystals 40 meq PO DAILY 5 Days Qty: 10 0RF No Action meloxicam 15 mg tablet 15 mg PO DAILY omeprazole 40 mg capsule,delayed release(DR/EC) 40 mg PO DAILY Eliquis 2.5 mg tablet 2.5 mg PO BID atorvastatin [Lipitor] 80 mg tablet 80 mg PO DAILY buspirone 10 mg tablet 10 mg PO BID losartan-hydrochlorothiazide 50-12.5 mg tablet PO acetaminophen 325 mg capsule 325 mg PO QID PRN pregabalin 75 mg capsule 75 mg PO DAILY tiotropium-olodaterol 2.5-2.5 mcg/actuation mist 2 puff inhalation DAILY sildenafil [Viagra] 100 mg tablet 100 mg PO DAILY PRN Rx Instructions: administer 30 minutes to 4 hours before activity mirtazapine 30 mg tablet 30 mg PO DAILY hydroxyzine HCl 25 mg tablet 25 mg PO BID PRN tizanidine 4 mg capsule 4 mg PO BID PRN prednisone 10 mg tablet PO trazodone 50 mg tablet 50 mg PO DAILY azithromycin 250 mg tablet 250 mg PO DAILY Rx Instructions: start on day 2 of therapy lorazepam 0.5 mg tablet 0.5 mg PO DAILY PRN albuterol sulfate [Ventolin HFA] 90 mcg/actuation HFA aerosol inhaler 1 inh inhalation QID B-complex with vitamin C Capsule 1 cap PO DAILY L-desoxyephedrine 50 mg inhaler intranasal Discharge Orders: Discharge ED (Routine); Ordered 12/16/24 Ordered By: Lily Pitts Referrals: Sherwin Palomino MD [Primary Care Provider, Family Practice] Discharge Diet: Usual diet Discharge Activity: Increase activity as tolerated Patient Instructions: Edema (ED), Opioid Safety, Pain Management, Patient Portal & Raghavendra Instructions Activity Restrictions/Additional Instructions: Thank you for choosing [facility] for your healthcare needs today. You have been screened and evaluated and felt safe for discharge. Health conditions do change or evolve sometimes and as such it is important that you follow up with your Primary Doctor to be re checked, 3-5 days is a general good time frame for follow up. You are always welcome to return to the ED for re assessment if your symptoms are worsening or you have new concerns Print Language: Honduran Coding Level of Care Code ED Physician Office Nurse for Mike Fwd Heart Score HEART Score Components History: Slightly Suspicous EKG: Normal Age: 65 or more yrs Risk Factors: >/=3 Risk Factors Troponin: Baseline Trop <16 ng/L HEART Score RESULT HEART Score: 4
[2024-12-16 15:36] VITALS: BP 153/77; PULSE 78; O2SAT 92
[2024-12-16 15:45] LABS: Hematocrit 42.8 % (37-53); Hemoglobin 13.90 g/dL (11.27-16.99); Mean Corpuscular HGB Conc 32.5 g/dL (30-55); Mean Corpuscular Hemoglobin 29.1 pg (27-33); Mean Corpuscular Volume 89.7 fl (82-101); Nucleated Red Blood Cells % 0 %; Platelet Count 266 10^3/cmm (157-399); Red Blood Count 4.77 10^6/uL (3.85-5.65); White Blood Count 9.53 10^3/uL (3.29-11.43)
[2024-12-16 16:08] LABS: Troponin(5th) Baseline 22 ng/L (0-15)
[2024-12-16 16:18] LABS: Alanine Aminotransferase 17 U/L (0-41); Albumin Level 4.5 g/dL (3.5-5.2); Alkaline Phosphatase 77 U/L (40-130); Anion Gap 17.3 (5-19); Aspartate Amino Transferase 19 U/L (0-40); Blood Urea Nitrogen 17 mg/dL (8-23); Calcium 9.0 mg/dL (8.5-10.5); Carbon Dioxide 28 mmol/L (22-29); Chloride 98 mmol/L (98-107); Creatinine Clr Calc Pharmacy 103.7200; Globulin 2.3 g/dL (1.3-4.6); Glucose 104 mg/dL (65-115); NT Pro B Type Natriuretic Pept 94 pg/mL (0-125); Osmolality Calculated 290 mOsm/kg (285-295); Potassium 4.3 mmol/L (3.5-5.1); Sodium 139 mmol/L (136-145); Total Protein 6.8 g/dL (6.6-8.7)
[2024-12-16 16:30] VITALS: BP 125/83; PULSE 71; O2SAT 92
[2024-12-16] MEDS: FUROsemide 10 mg/mL SDV 10mL 80 MG IVP (16:36)
[2024-12-16 17:00] VITALS: BP 148/57; PULSE 69; O2SAT 93
--- NOTE | 2024-12-16 17:15 | ECG_ITS ---
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 Measurements Intervals [place] Rate: 76 P: 0 AK: 0 QRS: -3 QRSD: 108 T: 12 QT: 382 QTc: 432 Interpretive Statements sinus rhythm with frequent PVCs ABNORMAL RHYTHM ECG Compared to ECG 12/16/2024 14:49:15 Supraventricular rhythm now present Sinus rhythm no longer present Ventricular premature complex(es) no longer present First degree AV block no longer present Electronically Signed On 12-16-2024 18:53:56 CDT by Zhang Kelly M.D. [email or web address]
[2024-12-16 17:45] LABS: Troponin 5 2HR 19.51 ng/L (0-15)
[2024-12-16 17:46] LABS: Troponin 5 2HR Delta -2.49 ABS# (0-10)
[2024-12-16 18:27] VITALS: BP 155/75; PULSE 68; O2SAT 94
--- NOTE | 2024-12-16 21:15 | ECG_ITS ---
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 Measurements Intervals [place] Rate: 81 P: 258 ND: 221 QRS: -6 QRSD: 104 T: 28 QT: 377 QTc: 440 Interpretive Statements SINUS RHYTHM WITH FIRST DEGREE AV BLOCK WITH FREQUENT VENTRICULAR PREMATURE COMPLEXES Compared to ECG 12/16/2024 17:16:11 Ventricular premature complex(es) now present First degree AV block now present Supraventricular rhythm no longer present Electronically Signed On 12-16-2024 18:53:21 CDT by Zhang Kelly M.D. [email or web address]
== END 2024-12-16 18:29 | disposition home or self-care (01) ==
PROVIDERS: Emergency Provider Emergency Medicine; PCP Family Medicine Geriatric Medicine
DX: R60.9 Edema, unspecified (principal); I25.10 Atherosclerotic heart disease of native coronary artery without angina pectoris; Z79.01 Long term (current) use of anticoagulants; I50.9 Heart failure, unspecified
CPT/HCPCS: 71045; 80053; 83880; 84484; 85025; 93005; 96374; 99285; J1938; J9999

== ENCOUNTER 2024-12-30 13:47 | Outpatient (CLI) | payer OTHER, SELFPAY ==
--- NOTE | 2024-12-30 15:00 | USCV_ITS ---
Yony Muse Age: 64 Gender: M : 1960 Exam Date: 12/30/2024 14:46 Ordering Phys: Juanito Ray MD ([email or web address]) Technologist: MIGUEL Exam Location: [facility] [place] Indication: SoB BP: 130 / 73 HR: 62 Rhythm: Sinus Technical Quality: Adequate MEASUREMENTS (Male / Female) Normal Values 2D ECHO LV Diastolic Diameter PLAX 5.3 cm 4.2 - 5.9 / 3.9 - 5.3 cm IVS Diastolic Thickness 1.4 cm 0.6 - 1.0 / 0.6 - 0.9 cm IVS Systolic Thickness 2.1 cm LVPW Diastolic Thickness 1.2 cm 0.6 - 1.0 / 0.6 - 0.9 cm LVPW Systolic Thickness 2.2 cm LVOT Diameter 2.1 cm LV Ejection Fraction 2D Teich 53.6 % LV Ejection Fraction MOD 4C 55.6 % LV Ejection Fraction MOD 2C 50.8 % LV Ejection Fraction 2C AL 48.8 % LA Diameter 3.9 cm RA Systolic Volume 4C AL 46.8 ml RA Systolic Volume 4C MOD 46.3 ml LA Sys Volume AL 92.9 cm cubed LA Sys Volume Index AL 32.6 cm cubed/m squared Aorta at Sinotubular Diameter 2.6 cm M-MODE LA Ao Ratio MM 1.4 AV Cusp Separation MM 2.0 cm DOPPLER AV Peak Velocity 141.0 cm/s LVOT Peak Velocity 118.0 cm/s AV Area Cont Eq vti 3.1 cm squared AV Area Cont Eq pk 3.0 cm squared MV Peak Velocity 88.0 cm/s MV Area PHT 3.9 cm squared Mitral E to A Ratio 0.9 TR Peak Velocity 107.0 cm/s TR Peak Gradient 4.6 mmHg TV Peak E Velocity 98.0 cm/s PV Peak Velocity 111.0 cm/s FINDINGS Left Ventricle Normal left ventricular size and systolic function, EF 55%. Mild left ventricular hypertrophy. Normal diastolic function. Right Ventricle Normal right ventricular size and systolic function. Right Atrium Normal right atrial size. Left Atrium Normal left atrial size. IA Septum Normal appearance of the interatrial septum. Mitral Valve Normal mitral valve structure. No mitral valve stenosis or regurgitation. Aortic Valve No aortic valve stenosis or regurgitation. Tricuspid Valve Normal tricuspid valve structure. No tricuspid valve stenosis. Trace regurgitation. Normal pulmonary pressure. Pulmonic Valve Normal pulmonic valve structure. No pulmonic valve stenosis or regurgitation. Pericardium No pericardial effusion. Aorta Normal diameter of the aortic root and ascending thoracic aorta. IVC Inferior vena cava not visualized. CONCLUSIONS Normal left ventricular size and systolic function, EF 55%. Mild left ventricular hypertrophy. Normal diastolic function. Normal right ventricular size and systolic function. No significant valvular abnormalities. Technically difficult study and images. Juanito Ray MD, FACC (Electronically Signed) Final Date: 01 January 2025 16:48 S
== END 2024-12-30 13:48 | disposition home or self-care (01) ==
LOC: RAD 13:48
PROVIDERS: PCP Family Medicine Geriatric Medicine; Visit Provider Internal Medicine Cardiovascular Disease
DX: R06.02 Shortness of breath (principal)
CPT/HCPCS: 93306

== ENCOUNTER → 2025-02-21 12:54 | Outpatient (BNVA) | payer OTHER, SELFPAY | PROVIDERS: PCP Family Medicine Geriatric Medicine; Visit Provider Nurse Practitioner | DX: M67.912 Unspecified disorder of synovium and tendon, left shoulder (principal); M19.012 Primary osteoarthritis, left shoulder; M75.112 Incomplete rotator cuff tear or rupture of left shoulder, not specified as traumatic | CPT/HCPCS: 99214 ==

== ENCOUNTER → 2025-03-15 08:51 | Outpatient (BNVA) | payer OTHER, SELFPAY | PROVIDERS: PCP Family Medicine Geriatric Medicine; Visit Provider Internal Medicine Cardiovascular Disease | DX: Z01.810 Encounter for preprocedural cardiovascular examination (principal); I50.22 Chronic systolic (congestive) heart failure; I49.3 Ventricular premature depolarization; I48.0 Paroxysmal atrial fibrillation; Z79.01 Long term (current) use of anticoagulants; I25.10 Atherosclerotic heart disease of native coronary artery without angina pectoris; I25.2 Old myocardial infarction; Z98.61 Coronary angioplasty status | CPT/HCPCS: 99214 ==